=== PATIENT | female | born 2000 | race African-American/Black ===

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

== ENCOUNTER 2022-01-17 18:16 | Emergency (ER) | payer OTHER ==
[2022-01-17 18:27] VITALS: BP 135/69; PULSE 81; RESP 18; TEMP 98.2; BMI 29.2
[2022-01-17 20:46] LABS: EPI CELLS >36 /uL (0-25.1); HYALINE CASTS 3 /uL (0-3.1); PH,URINE 5.5 (5.0-8.0); URINE APPEARANCE CLOUDY; URINE BACTERIA 277 /uL (0-1359); URINE BILIRUBIN NEGATIVE (NEGATIVE); URINE COLOR YELLOW; URINE GLUCOSE (UA) NEGATIVE (NEGATIVE); URINE KETONE TRACE (NEGATIVE); URINE LEUK ESTERASE 2+ (NEGATIVE); URINE NITRITE NEGATIVE (NEGATIVE); URINE PROTEIN 1+ (NEGATIVE); URINE RBC 275 /uL (0-23.9); URINE WBC 263 /uL (0-25.8)
[2022-01-17 20:47] LABS: HCG,QUALITATIVE URINE Negative
[2022-01-17] MEDS ORDERED: SODIUM CHLORIDE 0.9% 500 ML INFUS.BAG IV ONE (20:51)
[2022-01-17 21:03] LABS: BASO % 0.6 % (0-2.0); EOS % 0.1 % (0-4.5); HEMATOCRIT 35.3 % (32.4-45.2); HEMOGLOBIN 11.2 GM/dL (10.7-15.3); LYMPH % 15.5 % (8-40); MCH 27.8 pg (25.7-33.7); MCHC 31.7 g/dl (32.0-36.0); MEAN CELL VOLUME 87.7 fl (80-96); MEAN PLT VOLUME 8.6 fl (7.5-11.1); MONO % 5.5 % (3.8-10.2); NEUT % 78.3 % (42.8-82.8); PLATELET COUNT 389 10^3/uL (134-434); RBC 4.02 M/mm3 (3.60-5.2); RDW 13.2 % (11.6-15.6); WHITE BLOOD COUNT 15.5 K/mm3 (4.0-10.0)
[2022-01-17 21:28] LABS: BLOOD UREA NITROGEN 10.9 mg/dL (7-18)
[2022-01-17 21:30] LABS: CREATININE 0.7 mg/dL (0.55-1.3)
[2022-01-17 21:32] LABS: BILIRUBIN,TOTAL 0.4 mg/dL (0.2-1); TOT PROT 8.1 g/dl (6.4-8.2)
== END 2022-01-17 22:49 | disposition home or self-care (01) ==
LOC: JER 18:16 → JERFT 18:16
DX: R10.30 Lower abdominal pain, unspecified (principal)
CPT/HCPCS: 36415; 71046-TC-FY; 76705-TC; 76856-TC; 80053; 81003; 83690; 84703; 85025; 87086; 93005; 93010; 99285-25

== ENCOUNTER 2022-01-26 08:25 | Emergency (ER) | payer OTHER ==
[2022-01-26 08:33] VITALS: BP 136/79; PULSE 90; RESP 18; TEMP 98.6; BMI 30.4
[2022-01-26 10:37] LABS: EPI CELLS 15 /uL (0-25.1); HYALINE CASTS 0 /uL (0-3.1); PH,URINE 5.5 (5.0-8.0); URINE APPEARANCE CLEAR; URINE BACTERIA 252 /uL (0-1359); URINE BILIRUBIN NEGATIVE (NEGATIVE); URINE COLOR YELLOW; URINE GLUCOSE (UA) NEGATIVE (NEGATIVE); URINE KETONE NEGATIVE (NEGATIVE); URINE LEUK ESTERASE 2+ (NEGATIVE); URINE NITRITE NEGATIVE (NEGATIVE); URINE PROTEIN NEGATIVE (NEGATIVE); URINE RBC 5 /uL (0-23.9); URINE UROBILINOGEN 0.2 mg/dL (0.2-1.0); URINE WBC 84 /uL (0-25.8)
[2022-01-26 10:54] LABS: BASO % 0.8 % (0-2.0); EOS % 0.9 % (0-4.5); HEMATOCRIT 34.6 % (32.4-45.2); HEMOGLOBIN 10.6 GM/dL (10.7-15.3); LYMPH % 19.8 % (8-40); MCH 26.7 pg (25.7-33.7); MCHC 30.5 g/dl (32.0-36.0); MEAN CELL VOLUME 87.7 fl (80-96); MEAN PLT VOLUME 8.9 fl (7.5-11.1); MONO % 7.6 % (3.8-10.2); NEUT % 70.9 % (42.8-82.8); PLATELET COUNT 603 10^3/uL (134-434); RBC 3.95 M/mm3 (3.60-5.2); RDW 13.7 % (11.6-15.6); WHITE BLOOD COUNT 12.9 K/mm3 (4.0-10.0)
[2022-01-26 11:11] LABS: ALBUMIN 3.5 g/dl (3.4-5.0); BLOOD UREA NITROGEN 8.7 mg/dL (7-18); CALCIUM 9.7 mg/dL (8.5-10.1)
[2022-01-26 11:13] LABS: CREATININE 0.6 mg/dL (0.55-1.3)
[2022-01-26 11:16] LABS: BILIRUBIN,TOTAL 0.2 mg/dL (0.2-1); TOT PROT 7.7 g/dl (6.4-8.2)
== END 2022-01-26 15:04 | disposition home or self-care (01) ==
LOC: JER 08:25
DX: R10.11 Right upper quadrant pain (principal); N83.202 Unspecified ovarian cyst, left side
CPT/HCPCS: 36415; 74176-TC; 80053; 81003; 82150; 83690; 84703; 85025; 87077; 87086; 87491; 87591; 99284-25